=== PATIENT | male | born 1950 | race Caucasian/White ===

== ENCOUNTER 2019-05-08 08:29 | Day surgery (SDC) | payer MEDICARE, OTHER ==
[2019-05-06 13:03] VITALS: BMI 26.2
--- NOTE | 2019-05-08 08:11 | P.GSHP ---
History of Present Illness H&P Date: 05/08/19 CHIEF COMPLAINT: Colon screen HISTORY OF PRESENT ILLNESS: The patient is a 68-year-old male who presents for colon screen. Lower endoscopy was offered for further evaluation and management. PAST MEDICAL HISTORY: Please see list. PAST SURGICAL HISTORY: Please see list. MEDICATIONS: Please see list. ALLERGIES: Please see list. SOCIAL HISTORY: No illicit drug use FAMILY HISTORY: No reports of Crohn disease or ulcerative colitis. REVIEW OF ORGAN SYSTEMS: CONSTITUTIONAL: No reports of fevers or chills. PHYSICAL EXAM: VITAL SIGNS: Stable GENERAL: Well-developed pleasant in no acute distress. HEENT: No scleral icterus. Extraocular movements grossly intact. Moist buccal mucosa. NECK: Supple without lymphadenopathy. CHEST: Unlabored respirations. Equal bilateral excursions. CARDIOVASCULAR: Regular rate and rhythm. Distal 2+ pulses. ABDOMEN: Soft, nontender, nondistended. MUSCULOSKELETAL: No clubbing, cyanosis, or edema. ASSESSMENT: 1. Colon screen. PLAN: 1. Recommend proceeding with a lower endoscopy Past Medical History Past Medical History: GERD/Reflux, Hypertension History of Any Multi-Drug Resistant Organisms: None Reported Past Surgical History: Tonsillectomy Additional Past Surgical History / Comment(s): RIGHT ANKLE SURGERY, RIGHT THUMB SURGERY Past Anesthesia/Blood Transfusion Reactions: No Reported Reaction Smoking Status: Former smoker - Past Family History Mother Family Medical History: No Reported History Brother(s) Family Medical History: Cancer Medications and Allergies Home Medications Medication Instructions Recorded Confirmed Type Losartan-Hctz 50-12.5 mg [Hyzaar 1 each PO HS 05/06/19 05/06/19 History 50-12.5] Multivitamins, Thera [Multivitamin 1 tab PO DAILY 05/06/19 05/06/19 History (formulary)] [place]-3 Fatty Acids [[place]-3] 4,000 mg PO DAILY 05/06/19 05/06/19 History Vitamin E 2,000 unit PO DAILY 05/06/19 05/06/19 History Allergies Allergy/AdvReac Type Severity Reaction Status Date / Time No Known Allergies Allergy Verified 05/06/19 12:39
[~2019-05-08 08:29] MED LIST: LACTATED RINGERS 1,000 ML IV SCH; LIDOCAINE 1% 20 ML VIAL (10MG/ML) FOR IV START INTRADERMA PRN
[2019-05-08 09:31] VITALS: RESP 16; TEMP 97.2
[2019-05-08] MEDS ORDERED: PROPOFOL 10 MG/ML 20 ML VIAL IV ONE (09:57)
--- NOTE | 2019-05-08 10:42 | P.PCN ---
Date of Procedure: 05/08/19 Description of Procedure: PREOPERATIVE DIAGNOSIS: Colonoscopy screening POSTOPERATIVE DIAGNOSIS: Colonoscopy screening. Diverticulosis, scattered with diverticulitis OPERATION: Colonoscopy to the ileocecal valve and appendiceal orifice. SURGEON: Peri Valdes MD. ANESTHESIA: MAC. INDICATIONS: The patient is a 61-year-old female who presents for colonoscopy screening. Benefits and risks were described and informed consent was obtained. DESCRIPTION OF PROCEDURE: The patient had undergone Suprep. He had been brought into the operating room and laid in the left lateral decubitus position. After adequate intravenous sedation, the rectum was examined with 2% lidocaine jelly. No external hemor rhoids were encountered. The rectal tone was within normal limits. No lesions were palpated in the rectal vault. An Olympus colonoscope was advanced until the ileocecal valve and appendiceal orifice were clearly viewed. The prep was excellent with clear visualization of the mucosal folds. The scope was removed with visualization of each mucosal fold. Scattered diverticulosis with sigmoid diverticulitis mild was encountered. No colonic polyps were found. Retroflexion of the scope demonstrated grade 2 internal hemorrhoids without active bleeding or inflammation. The colon was desufflated. The patient had tolerated the procedure well. Withdrawal time was over 6 minutes. FINDINGS: Aronchick preparation quality scale 1 (1-5) Internal hemorrhoids, grade 2 No external prolapsed hemorrhoids. No arteriovenous malformations. No adenomatous polyps. Sigmoid diverticulosis with diverticulitis, mild RECOMMENDATIONS: Lower endoscopy in 5 years, 2023 Plan - Discharge Summary Discharge Rx Participant: No New Discharge Prescriptions: No Action Losartan-Hctz 50-12.5 mg [Hyzaar 50-12.5] 1 each PO HS Vitamin E 2,000 unit PO DAILY [place]-3 Fatty Acids [[place]-3] 4,000 mg PO DAILY Multivitamins, Thera [Multivitamin (formulary)] 1 tab PO DAILY Discharge Medication List Losartan-Hctz 50-12.5 mg [Hyzaar 50-12.5] 1 each PO HS 05/06/19 [History] Multivitamins, Thera [Multivitamin (formulary)] 1 tab PO DAILY 05/06/19 [History] [place]-3 Fatty Acids [[place]-3] 4,000 mg PO DAILY 05/06/19 [History] Vitamin E 2,000 unit PO DAILY 05/06/19 [History] Follow up Appointment(s)/Referral(s): Peri Valdes MD [STAFF PHYSICIAN] - 05/21/19 Patient Instructions/Handouts: Diverticulitis (DC), Diverticulitis Diet (DC) Discharge Disposition: HOME SELF-CARE
[2019-05-08 10:48] VITALS: BP 117/76; PULSE 58
== END 2019-05-08 11:49 | disposition home or self-care (01) ==
LOC: ORWHC2ENDO 08:29
PROVIDERS: ATTEND Surgery Plastic and Reconstructive Surgery
DX: Z12.11 Encounter for screening for malignant neoplasm of colon (principal); K57.32 Diverticulitis of large intestine without perforation or abscess without bleeding; K21.9 Gastro-esophageal reflux disease without esophagitis; I10 Essential (primary) hypertension; Z79.899 Other long term (current) drug therapy
CPT/HCPCS: J2704; G0121

== ENCOUNTER → 2023-01-13 | Outpatient (CLI) | payer MEDICARE ==
[2023-01-13 10:44] LABS: Basophils # (A) 0.04 X 10*3/uL (0.00-0.10); Eosinophils # (A) 0.19 X 10*3/uL (0.04-0.35); Eosinophils % (A) 4.7 %; HCT 46.9 % (39.6-50.0); HGB 15.7 g/dL (13.0-17.0); Immature Grans, Automated 0.2 %; Lymphocytes # (A) 1.28 X 10*3/uL (0.90-5.00); Lymphocytes % (A) 31.8 %; MCH 30.6 pg (27.0-32.0); MCHC 33.5 g/dL (32.0-37.0); MCV 91.4 fL (80.0-97.0); Mean Platelet Volume 11.5 fL (9.5-12.2); Monocytes # (A) 0.53 X 10*3/uL (0.20-1.00); Monocytes % (A) 13.2 %; NRBC Per 100 WBC 0 /100 WBCS (0.0-0.0); Neutrophils # (A) 1.97 X 10*3/uL (1.80-7.70); Neutrophils % (A) 49.1 %; Platelet Count 182 X 10*3/uL (140-440); RBC 5.13 X 10*6/uL (4.40-5.60); RDW 12.9 % (11.5-14.5); WBC 4.02 X 10*3/uL (4.50-10.00)
[2023-01-13 11:05] LABS: Erythrocyte Sedimentation Rate 6 mm/Hr (0-20)
== END | disposition home or self-care (01) ==
LOC: LABWHC1 07:57
PROVIDERS: ATTEND Ophthalmology
DX: M31.6 Other giant cell arteritis (principal)
CPT/HCPCS: 36415; 85025; 85652; 86140

== ENCOUNTER → 2023-01-24 | Outpatient (CLI) | payer MEDICARE ==
--- NOTE | 2023-01-24 16:38 | US ---
EXAMINATION TYPE: US carotid duplex BILAT DATE OF EXAM: 01/24/2023 COMPARISON: NONE CLINICAL HISTORY: I10 HYPERTENSION. Visual disturbance. TECHNIQUE: Carotid duplex ultrasound examination. Indirect Doppler criteria was utilized. FINDINGS: EXAM MEASUREMENTS: RIGHT: Peak Systolic Velocity (PSV) cm/sec ----- Right CCA: 86.4 ----- Right ICA: 111.7 ----- Right ECA: 151.2 ICA/CCA ratio: 1.3 RIGHT: End Diastole cm/sec ----- Right CCA: 25.9 ----- Right ICA: 39.1 ----- Right ECA: 23.6 LEFT: Peak Systolic Velocity (PSV) cm/sec ----- Left CCA: 94.3 ----- Left ICA: 127.9 ----- Left ECA: 147.6 ICA/CCA ratio: 1.4 LEFT: End Diastole cm/sec ----- Left CCA: 25.8 ----- Left ICA: 25.4 ----- Left ECA: 23.5 VERTEBRALS (direction of flow): Right Vertebral: no flow detected Left Vertebral: Antegrade Rhythm: Normal FORCE DISPATCHER NOTES: Soft plaque noted left bulb. Elevated velocities bilateral ECA's and mildly elevat ed left ICA. IMPRESSION: 1. 50-69% stenosis of the left carotid bifurcation by peak systolic velocity. 2. Less than 50% stenosis of the right carotid bifurcation. Criteria for Assigning % of Stenosis / Diameter reduction (Estimation based on the indirect measurements of the internal carotid artery velocities (ICA PSV). 1. Normal (no stenosis)=ICA PSV < 125 cm/s: ratio < 2.0: ICA EDV<40 cm/s. 2. Less than 50% stenosis=ICA PSV < 125 cm/s: ratio < 2.0: ICA EDV<40 cm/s. 3. 50 to 69% stenosis=ICA PSV of 125 to 230 cm/s: ration 2.0 ? 4.0: ICA EDV 40-100 cm/s. 4. Greater than 70% stenosis to near occlusion= ICA PSV > 230 cm/s: ratio > 4.0: ICA EDV > 100 cm/s. 5. Near occlusion= ICA PSV velocities may be low or undetectable: variable ratio and ICA EDV. 6. Total occlusion=unable to detect flow.
--- NOTE | 2023-01-25 11:17 | CA ---
Transthoracic Echo Report Name: Bruce Portillo Age: 72 Gender: M : 1950 Exam Date: 01/24/2023 15:07 Exam Location: [place] Echo Ht (in): 71 Wt (lb): 180 Ordering Physician: Boby Cruz MD Attending/Referring Phys: Koki Bella [facility] Snorkelling Instructor Carmine Mirza RDCS Procedure CPT: Indications: i10 Cardiac Hx: HTN; High Cholesterol Technical Quality: Fair Contrast 1: Total Dose (mL): Contrast 2: Total Dose (mL): MEASUREMENTS (Male / Female) Normal Values 2D ECHO LV Diastolic Diameter PLAX 3.3 cm 4.2 - 5.9 / 3.9 - 5.3 cm LV Systolic Diameter PLAX 2.4 cm LV Fractional Shortening PLAX 26.9 % IVS Diastolic Thickness 1.5 cm 0.6 - 1.0 / 0.6 - 0.9 cm IVS Systolic Thickness 1.6 cm LVPW Diastolic Thickness 1.3 cm 0.6 - 1.0 / 0.6 - 0.9 cm LVPW Systolic Thickness 1.7 cm LV Relative Wall Thickness 0.9 RV Internal Dim ED PLAX 3.1 cm LVOT Diameter 2.1 cm LA Systolic Diameter LX 3.0 cm 3.0 - 4.0 / 2.7 - 3.8 cm LV Diastolic Volume MOD BP 94.2 cm??? 67 - 155 / 56 - 104 cm??? LV Systolic Volume MOD BP 32.9 cm??? 22 - 58 / 19 - 49 cm??? LV Ejection Fraction MOD BP 65.0 % >= 55 % LV Stroke Volume MOD BP 61.2 cm??? LV Diastolic Volume MOD 4C 91.3 cm??? LV Systolic Volume MOD 4C 23.7 cm??? LV Ejection Fraction MOD 4C 74.1 % LV Stroke Volume MOD 4C 67.7 cm??? LV Diastolic Length 4C 9.0 cm LV Systolic Length 4C 6.8 cm LV Diastolic Volume MOD 2C 97.0 cm??? LV Systolic Volume MOD 2C 43.0 cm??? LV Ejection Fraction MOD 2C 55.7 % LV Stroke Volume MOD 2C 54.0 cm??? LV Diastolic Length 2C 9.1 cm LV Systolic Length 2C 7.3 cm Ascending Aorta Diameter 3.1 cm M-MODE Aortic Root Diameter MM 3.3 cm LA Systolic Diameter MM 3.4 cm LA Ao Ratio MM 1.0 MV E Point Septal Separation 0.6 cm AV Cusp Separation MM 1.5 cm DOPPLER AV Peak Velocity 153.8 cm/s AV Peak Gradient 9.5 mmHg AI Peak Velocity 391.1 cm/s AI Peak Gradient 61.2 mmHg AI Deceleration [place] 191.4 cm/s??? AI Pressure Half Time 592.5 ms MV Peak Velocity 104.6 cm/s MV Peak Gradient 4.4 mmHg MV Mean Velocity 55.8 cm/s MV Mean Gradient 1.5 mmHg MV Velocity Time Integral 23.7 cm MV Deceleration [place] 223.2 cm/s??? Mitral E Point Velocity 58.3 cm/s Mitral A Point Velocity 98.9 cm/s Mitral E to A Ratio 0.6 MV Deceleration Time 261.0 ms MV E' Velocity 4.6 cm/s Mitral E to MV E' Ratio 12.6 TR Peak Velocity 300.2 cm/s TR Peak Gradient 36.1 mmHg Right Ventricular Systolic Press 44.1 mmHg PV Peak Velocity 104.2 cm/s PV Peak Gradient 4.3 mmHg FINDINGS Left Ventricle Left ventricular ejection fraction is estimated at 55-60%. Mild concentric left ventricular hypertrophy. Grade 1 diastolic dysfunction. Normal systolic function. Right Ventricle Normal right ventricular size and function. RVSP- 42 mm Hg Right Atrium Mild right atrial dilatation. Left Atrium Normal left atrial size. Mitral Valve Mitral valve thickened. Mild mitral annular calcification with mild thickness of anterior mitral leaflet. Mild mitral regurgitation Aortic Valve Trileaflet aortic valve. [id number] aortic regurgitation. Tricuspid Valve Mild tricuspid regurgitation. Pulmonic Valve Trace to mild pulmonic regurgitation. Pericardium Normal pericardium. No pericardial effusion. Aorta Normal size aortic root and proximal ascending aorta. CONCLUSIONS Normal LV size and systolic function with mild concentric LVH. Nonspecific thickening of posterior mitral leaflet a mild degree with mitral annular calcification. There is mild mitral regurgitation. Mild pulmonary hypertension. No pericardial effusion Previewed by: Dr. Pranav Castillo MD (Electronically Signed) Final Date: 25 January 2023 11:16
== END | disposition home or self-care (01) ==
LOC: RADECHMAIN 14:44
PROVIDERS: ATTEND Family Medicine
DX: I65.23 Occlusion and stenosis of bilateral carotid arteries (principal); I10 Essential (primary) hypertension
CPT/HCPCS: 93306; 93880